=== PATIENT | male | born 1980 | race Caucasian/White ===

== ENCOUNTER 2021-12-31 06:53 | Emergency (ER) | payer OTHER ==
[2021-12-31] MEDS ORDERED: VIBRAMYCIN100 MG PO (07:23)
== END 2021-12-31 07:45 | disposition home or self-care (01) ==
LOC: ER1 06:53
DX: S30.860A Insect bite (nonvenomous) of lower back and pelvis, initial encounter (principal); F17.210 Nicotine dependence, cigarettes, uncomplicated; W57.XXXA Bitten or stung by nonvenomous insect and other nonvenomous arthropods, initial encounter
CPT/HCPCS: 99281